=== PATIENT | male | born 1955 | race African-American/Black ===

== ENCOUNTER 2019-01-03 09:19 | Emergency (ER) | payer BC, MEDICAID ==
[~2019-01-03] VITALS: Ht 170.2 cm; Wt 65.3 kg
[2019-01-03 09:38] VITALS: BP 155/93
--- NOTE | 2019-01-03 09:52 | PHYS DOC ---
Adult General Chief Complaint Chief Complaint: ANKLE PROBLEM HPI HPI Patient is a 63 year old male presents to the ED complaining of right ankle injury times one week ago. Patient states he was walking and twisted his right ankle. Patient states he's been soaking it and icing it but the pain persists to his right lateral ankle. Describes the pain as sharp. Rates the pain as 5 out of 10. Denies head/neck injury, LOC, vision changes, symptoms prior to fall , use of blood thinners, calf pain/swelling, paresthesias, or weakness. Review of Systems Review of Systems Constitutional: Denies fever or chills [] Respiratory: Denies cough or shortness of breath [] Cardiovascular: No additional information not addressed in HPI [] GI: Denies abdominal pain, nausea, vomiting, bloody stools or diarrhea [] : Denies dysuria or hematuria [] Musculoskeletal: Complains of right ankle pain. Denies back pain or joint pain [ ] Integument: Denies rash or skin lesions [] Neurologic: Denies headache, focal weakness or sensory changes [] Endocrine: Denies polyuria or polydipsia [] All other systems were reviewed and found to be within normal limits, except as documented in this note. Allergies Allergies Allergies Coded Allergies Type Severity Reaction Last Updated Verified No Known Drug Allergies 01/03/19 No Physical Exam Physical Exam Constitutional: Well developed, well nourished, no acute distress, non-toxic appearance. [] HENT: Normocephalic, atraumatic Neck: Normal range of motion, no tenderness, supple, no stridor. [] Cardiovascular:Heart rate regular rhythm, no murmur [] Lungs & Thorax: Bilateral breath sounds clear to auscultation [] Skin: Warm, dry, no erythema, no rash. [] Back: No tenderness, no CVA tenderness. [] Extremities: Mild right lateral ankle tenderness/swelling. FROM. NV intact. No overlying skin changes, no cyanosis, no clubbing, ROM intact, no edema. [] Neurologic: Alert and oriented X 3, normal motor function, normal sensory function, no focal deficits noted. [] Psychologic: Affect normal, judgement normal, mood normal. [] Current Patient Data Vital Signs Vital Signs Date Time Temp Pulse Resp B/P (MAP) Pulse Ox O2 Delivery O2 Flow Rate FiO2 01/03/19 09:38 97.8 102 18 155/93 (113) 95 Room Air 97.8 EKG EKG [] Radiology/Procedures Radiology/Procedures PROCEDURE: ANKLE RIGHT 3V Right ankle and foot radiograph 01/03/2019 9:47 AM INDICATION: Lateral right ankle pain after fall one week ago. History of ankle fracture. COMPARISON: None available. TECHNIQUE: 3 views of the right foot and 3 views the right ankle are provided. FINDINGS: There is a nondisplaced fracture involving the lateral malleolus, 3 cm from the distal tip, without definite extension to the ankle mortise. Ankle mortise is congruent. Tibial plafond and talar dome are intact.. There is mild hallux valgus deformity. Vascular calcifications are present. Bone mineralization is within normal limits. Joint spaces are maintained. Regional soft tissues are within normal limits. There is no soft tissue gas or osseous erosion. IMPRESSION: Nondisplaced fracture involving the lateral malleolus at the level of the tibial plafond without extension to the ankle mortise. There is associated soft tissue swelling.[] Course & Med Decision Making Course & Med Decision Making Pertinent Labs and Imaging studies reviewed. (See chart for details) []Discussed imaging findings with patient. Patient's pain improved in the ED. Patient placed in splint. Neurovascular intact post placement. Patient given crutches. Discussed remaining nonweightbearing until seen by orthopedic this week. Provided contact information/education. Discussed reasons to return to the ED. Patient understands and agrees with plan. Dragon Disclaimer Dragon Disclaimer This electronic medical record was generated, in whole or in part, using a voice recognition dictation system. Departure Departure Impression: Primary Impression: Ankle fracture Disposition: 01 HOME, SELF-CARE Condition: IMPROVED Referrals: NON,STAFF (PCP) KEN YOUSSEF MD Patient Instructions: Ankle Fracture Scripts Hydrocodone/Apap 5-325 (NORCO 5-325 TABLET) 1 Each Tablet 1 TAB PO BID for 4 Days, #8 TAB Prov: ORTIZ ARANGO 01/03/19 ORTIZ ARANGO Jan 03, 2019 09:52
--- NOTE | 2019-01-03 10:22 | RAD ---
Right ankle and foot radiograph 01/03/2019 9:47 AM INDICATION: Lateral right ankle pain after fall one week ago. History of ankle fracture. COMPARISON: None available. TECHNIQUE: 3 views of the right foot and 3 views the right ankle are provided. FINDINGS: There is a nondisplaced fracture involving the lateral malleolus, 3 cm from the distal tip, without definite extension to the ankle mortise. Ankle mortise is congruent. Tibial plafond and talar dome are intact.. There is mild hallux valgus deformity. Vascular calcifications are present. Bone mineralization is within normal limits. Joint spaces are maintained. Regional soft tissues are within normal limits. There is no soft tissue gas or osseous erosion. IMPRESSION: Nondisplaced fracture involving the lateral malleolus at the level of the tibial plafond without extension to the ankle mortise. There is associated soft tissue swelling. Electronically signed by: Kindra Martinez MD (01/03/2019 10:19 AM) [id number]
[2019-01-03] MEDS ORDERED: HYDR-3164 PO (10:29)
== END 2019-01-03 11:27 | disposition home or self-care (01) ==
LOC: ER 09:19
DX: S82.891A Other fracture of right lower leg, initial encounter for closed fracture (principal); X50.9XXA Other and unspecified overexertion or strenuous movements or postures, initial encounter; Y93.89 Activity, other specified; Y92.89 Other specified places as the place of occurrence of the external cause; Y99.8 Other external cause status
CPT/HCPCS: 29515; 73610; 73630; 99283-25